=== PATIENT | male | born 1990 | race African-American/Black ===

== ENCOUNTER 2018-03-17 20:15 | Emergency (ER) | payer OTHER, SELFPAY ==
[2018-03-17 20:19] VITALS: BP 122/59; PULSE 66; RESP 18; O2SAT 99; BMI 25.8
[2018-03-17 20:55] VITALS: BP 122/59; PULSE 66; RESP 18; O2SAT 99; BMI 25.8
--- NOTE | 2018-03-17 20:57 | DI.CT.S_ITS ---
PROCEDURE: CT HEAD/BRAIN WO CON INDICATIONS: vision changes, headache, hx hemangioma TECHNIQUE: Noncontrast 4.5 mm thick angled axial sections acquired from the foramen magnum to the vertex, with coronal and sagittal reformats. For radiation dose reduction, the following was used: automated exposure control, adjustment of mA and/or kV according to patient size. COMPARISON: None. FINDINGS: Image quality: Excellent. CSF spaces: Basal cisterns are patent. No extra-axial fluid collections. Ventricles are normal in size and shape. Brain: No intracranial hemorrhage, mass, or mass effect. There are postsurgical changes along the right frontal and temporal lobes. Kenney-white matter interface is otherwise preserved. Skull and face: Calvarium and visualized facial bones demonstrate no acute fractures. There are postsurgical changes status post right temporoparietal craniotomy. Sinuses: Visualized sinuses and mastoids are clear. IMPRESSION: 1. No acute intracranial abnormality Dictated by: Mario Blue M.D. on 03/17/2018 at 21:49 Approved by: Mario Blue M.D. on 03/17/2018 at 21:56
[2018-03-17 21:00] VITALS: BP 129/70; PULSE 62; RESP 12; O2SAT 100
[2018-03-17 21:38] LABS: Bacteria Urine None Seen; Bilirubin Urine UA NEGATIVE (NEGATIVE); Color Urine UA YELLOW; Glucose Urine UA NEGATIVE (Normal); Ketones Urine UA NEGATIVE (NEGATIVE); Leukocyte Esterase Urine UA NEGATIVE (NEGATIVE); Nitrite Urine UA NEGATIVE (Negative); Occult Blood Urine UA NEGATIVE (Negative); Protein Urine UA TRACE (Negative); RBC Urine None Seen (0-5/HPF); Specific Gravity Urine UA 1.015 (1.000-1.035); Urobilinogen Urine UA 0.2 E.U./dL (0.2); WBC Urine None Seen (0-5/HPF); pH Urine UA 8.5 (4.5-8.0)
[2018-03-17 21:40] LABS: Add Manual Diff / Slide Review NO; Basophils Percent Auto 0.6 % (0-2); Eosinophils Percent Auto 1.5 % (2-4); Hemoglobin 14.9 g/dL (13.5-17.5); Lymphocytes Percent Auto 32.8 % (25-40); Mean Corpuscular HGB Conc 33.8 % (30-36); Mean Corpuscular Volume 85.8 fL (80-100); Monocytes Percent Auto 10.8 % (3-14); Neutrophils Absolute Auto 3100 /uL (3000-5900); Neutrophils Percent Auto 54.3 % (50-75); Platelet Count 231 X10^3/uL (150-400); Red Blood Cell Count 5.13 X10^6/uL (4.5-5.9); Red Cell Distribution Width 12.8 % (11.6-14.8); White Blood Cell Count 5.7 X10^3/uL (4.5-11.0)
--- NOTE | 2018-03-17 21:40 | ED.HA ---
HPI - Headache <MAGALYS Mercedes - Last Filed: 03/17/18 22:59> General Chief Complaint: Headache Stated Complaint: HARD TIME FOCUSING VISION CHANGES Time Seen by Provider: 03/17/18 20:37 Source: patient and family Mode of arrival: ambulatory Limitations: no limitations History of Present Illness HPI Narrative: Patient presents with chief complaint of headache. He states he has a history of headaches. He states that he had a short episode of vision loss and weakess this afternoon that lasted for about a second. 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 He also notes elucidation is a few months ago as well as the possibility of hallucinating spider this morning. He denies any cough, congestion, chest pain, shortness of breath, nausea vomiting or diarrhea. He states he is photophobic and phonophobic. He has not taken anything at home for his headache. He states he is having trouble finding a neurologist. Related Data Allergies Allergy/AdvReac Type Severity Reaction Status Date / Time No Known Drug Allergies Allergy Verified 03/17/18 20:18 Review of Systems <MAGALYS Mercedes - Last Filed: 03/17/18 22:59> Review of Systems GENERAL: Denies chills, fatigue, malaise, fever, sweats. HEENT: Denies sinus pain, ear pain, sore throat, difficulty swallowing, dizziness. RESPIRATORY: Denies dyspnea, cough, wheezing, hemoptysis, sputum. CARDIOVASCULAR: Denies chest pain, palpitations, orthopnea, edema, GASTROINTESTINAL: Denies nausea, vomiting, abdominal pain, diarrhea, constipation, melena. : Denies dysuria, frequency, incontinence, hematuria, urinary retention. MUSCULOSKELETAL: denies weakness, joint pain, or bony pain SKIN: Denies rash, skin lesions, or other NEUROLOGIC: HPI PSYCHIATRIC: No concerning psychosocial issues. 12 point review of systems is negative except for those stated above Exam <MAGALYS Mercedes - Last Filed: 03/17/18 22:59> Narrative Exam Narrative: GENERAL: This is a well-nourished, well-developed patient, in No acute distress HEAD: Atraumatic. Normocephalic. No temporal or scalp tenderness. EYES: Pupils equal round and reactive. Extraocular motions intact. No scleral icterus. No injection or drainage. no nystagmus noted ENT: Nose without bleeding, purulent drainage or septal hematoma. Throat without erythema, tonsillar hypertrophy or exudate. Uvula midline. Airway patent. NECK: Trachea midline. No JVD or lymphadenopathy. Supple, nontender, no meningeal signs. CARDIOVASCULAR: Regular rate and rhythm without murmurs, gallops, or rubs. RESPIRATORY: Clear to auscultation. Breath sounds equal bilaterally. No wheezes, rales, or rhonchi. GASTROINTESTINAL: Abdomen soft, non-tender, nondistended. No hepato-splenomegaly, or palpable masses. No guarding. EXTREMITIES: No clubbing, cyanosis, or edema. No joint tenderness, effusion, or edema noted. BACK: Nontender without deformity or crepitance. No flank tenderness. NEURO: AOx3. the strength is equal upper and lower extremities bilaterally. Achilles and radial reflexes intact bilaterally. Stable gait. Finger-nose test intact. SKIN: No rash or erythema. Scar visible right head. Initial Vital Signs Initial Vital Signs: Vital Signs Pulse Rate 66 03/17/18 20:19 Respiratory Rate 18 03/17/18 20:19 Blood Pressure 122/59 L 03/17/18 20:19 Pulse Oximetry 99 03/17/18 20:19 <Tammy Bowman DO - Last Filed: 03/18/18 04:18> Initial Vital Signs Initial Vital Signs: Vital Signs Pulse Rate 66 03/17/18 20:19 Respiratory Rate 18 03/17/18 20:19 Blood Pressure 122/59 L 03/17/18 20:19 Pulse Oximetry 99 03/17/18 20:19 Course <TERRY Mercedes - Last Filed: 03/17/18 22:59> Course Narrative: I checked on the patient several times throughout his stay in the emergency department. We discussed his negative head CT As well as follow up with primary care neurologist. Orders Ordered: ED Orders 03/17/18 20:57 CT head/brain wo con Stat 03/17/18 21:23 Urinalysis and Microscopic Stat Urine Drug Screen, Rapid Stat 03/17/18 21:28 Complete Blood Count AUTO DIFF Stat Comprehensive Metabolic Panel Stat Ethanol (ETOH) Stat Discontinued Medications Diphenhydramine HCl (Benadryl) 50 mg IM NOW ONE Stop: 03/17/18 22:10 Last Admin: 03/17/18 22:53 Dose: Diphenhydramine HCl (Benadryl) 50 mg IV NOW ONE Stop: 03/17/18 22:49 Last Admin: 03/17/18 22:52 Dose: 50 mg Sodium Chloride (Normal Saline 0.9%) 1,000 mls @ 1,000 mls/hr IV BOLUS ONE Stop: 03/17/18 23:53 Last Infusion: 03/17/18 23:18 Dose: 1,000 mls/hr Admin: 03/17/18 22:30 Dose: 1,000 mls/hr Ketorolac Tromethamine (Toradol) 30 mg IM NOW ONE Stop: 03/17/18 22:10 Last Admin: 03/17/18 22:53 Dose: Ketorolac Tromethamine (Toradol) 30 mg IV NOW ONE Stop: 03/17/18 22:49 Last Admin: 03/17/18 22:51 Dose: 30 mg Metoclopramide HCl (Reglan) 10 mg IM NOW ONE Stop: 03/17/18 22:10 Last Admin: 03/17/18 22:53 Dose: Metoclopramide HCl (Reglan) 10 mg IV NOW ONE Stop: 03/17/18 22:49 Last Admin: 03/17/18 22:52 Dose: 10 mg Vital Signs - 8 hr 03/17/18 20:19 03/17/18 20:55 03/17/18 21:00 Pulse Rate 66 66 62 Respiratory Rate 18 18 12 Blood Pressure 122/59 L 122/59 L Blood Pressure [Left Arm] 129/70 Pulse Oximetry 99 99 100 03/17/18 22:00 Pulse Rate 59 L Respiratory Rate 15 Blood Pressure Blood Pressure [Left Arm] 124/60 Pulse Oximetry 100 <Tammy Bowman DO - Last Filed: 03/18/18 04:18> Orders Ordered: ED Orders 03/17/18 20:57 CT head/brain wo con Stat 03/17/18 21:23 Urinalysis and Microscopic Stat Urine Drug Screen, Rapid Stat 03/17/18 21:28 Complete Blood Count AUTO DIFF Stat Comprehensive Metabolic Panel Stat Ethanol (ETOH) Stat Discontinued Medications Diphenhydramine HCl (Benadryl) 50 mg IM NOW ONE Stop: 03/17/18 22:10 Last Admin: 03/17/18 22:53 Dose: Diphenhydramine HCl (Benadryl) 50 mg IV NOW ONE Stop: 03/17/18 22:49 Last Admin: 03/17/18 22:52 Dose: 50 mg Sodium Chloride (Normal Saline 0.9%) 1,000 mls @ 1,000 mls/hr IV BOLUS ONE Stop: 03/17/18 23:53 Last Infusion: 03/17/18 23:18 Dose: 1,000 mls/hr Admin: 03/17/18 22:30 Dose: 1,000 mls/hr Ketorolac Tromethamine (Toradol) 30 mg IM NOW ONE Stop: 03/17/18 22:10 Last Admin: 03/17/18 22:53 Dose: Ketorolac Tromethamine (Toradol) 30 mg IV NOW ONE Stop: 03/17/18 22:49 Last Admin: 03/17/18 22:51 Dose: 30 mg Metoclopramide HCl (Reglan) 10 mg IM NOW ONE Stop: 03/17/18 22:10 Last Admin: 03/17/18 22:53 Dose: Metoclopramide HCl (Reglan) 10 mg IV NOW ONE Stop: 03/17/18 22:49 Last Admin: 03/17/18 22:52 Dose: 10 mg Vital Signs - 8 hr 03/17/18 20:19 03/17/18 20:55 03/17/18 21:00 Pulse Rate 66 66 62 Respiratory Rate 18 18 12 Blood Pressure 122/59 L 122/59 L Blood Pressure [Left Arm] 129/70 Pulse Oximetry 99 99 100 03/17/18 22:00 Pulse Rate 59 L Respiratory Rate 15 Blood Pressure Blood Pressure [Left Arm] 124/60 Pulse Oximetry 100 MDM - Headache <JEMIMA Mercedes-BC - Last Filed: 03/17/18 22:59> Lab Data Result diagrams: 03/17/18 21:28 03/17/18 21:28 Lab Results 03/17/18 03/17/18 03/17/18 Range/Units 21:23 21:23 21:28 WBC 5.7 (4.5-11.0) X10^3/uL RBC 5.13 (4.5-5.9) X10^6/uL Hgb 14.9 (13.5-17.5) g/dL Hct 44.0 (41-53) % MCV 85.8 (80-100) fL MCH 29.0 (26-34) PG MCHC 33.8 (30-36) % RDW 12.8 (11.6-14.8) % Plt Count 231 (150-400) X10^3/uL Neut % (Auto) 54.3 (50-75) % Lymph % (Auto) 32.8 (25-40) % Ceiba % (Auto) 10.8 (3-14) % Eos % (Auto) 1.5 L (2-4) % Baso % (Auto) 0.6 (0-2) % Neut # (Auto) 3100 (0260-0881) /uL Sodium (137-145) mmol/L Potassium (3.4-5.1) mmol/L Chloride (98-107) mmol/L Carbon Dioxide (22-32) mmol/L BUN (9-20) mg/dL Creatinine (0.66-1.25) mg/dL Estimated GFR (>60) mL/min BUN/Creatinine Ratio (6-22) Glucose (70-100) mg/dL Calcium (8.4-10.2) mg/dL Total Bilirubin (0.2-1.3) mg/dL AST (17-59) IU/L ALT (21-72) IU/L Alkaline Phosphatase (38-126) U/L Total Protein (6.3-8.2) g/dL Albumin (3.5-5.0) g/dL Globulin (1.7-4.1) g/dL Albumin/Globulin Ratio (1.0-2.8) Urine Color Yellow Urine Appearance Sl cloudy Urine pH 8.5 H (4.5-8.0) Ur Specific [place] 1.015 (1.000-1.035) Urine Protein Trace H (Negative) Urine Glucose (UA) Negative (Normal) g/dL Urine Ketones Negative (NEGATIVE) Urine Occult Blood Negative (Negative) Urine Nitrate Negative (Negative) Urine Bilirubin Negative (NEGATIVE) Urine Urobilinogen 0.2 (0.2) E.U./dL Ur Leukocyte Esterase Negative (NEGATIVE) Urine RBC None seen (0-5/HPF) Urine WBC None seen (0-5/HPF) Urine Bacteria None seen (None) Ur Culture Indicated? Cult not indicated Micro UA Comment * Urine Opiates Screen Negative (Negative) Ur Oxycodone Screen Negative (Negative) Urine Methadone Screen Negative (Negative) Ur Barbiturates Screen Negative (Negative) U Tricyclic Antidepress Negative (Negative) Ur Phencyclidine Scrn Negative (Negative) Ur Amphetamines Screen Negative (Negative) U Methamphetamines Scrn Negative (Negative) Ur MDMA Scrn (Ecstasy) Negative (Negative) U Benzodiazepines Scrn Negative (Negative) Urine Cocaine Screen Negative (Negative) U Marijuana (THC) Screen Negative (Negative) Ethyl Alcohol mg/dL 03/17/18 Range/Units 21:28 WBC (4.5-11.0) X10^3/uL RBC (4.5-5.9) X10^6/uL Hgb (13.5-17.5) g/dL Hct (41-53) % MCV (80-100) fL MCH (26-34) PG MCHC (30-36) % RDW (11.6-14.8) % Plt Count (150-400) X10^3/uL Neut % (Auto) (50-75) % Lymph % (Auto) (25-40) % [place] % (Auto) (3-14) % Eos % (Auto) (2-4) % Baso % (Auto) (0-2) % Neut # (Auto) (0438-2381) /uL Sodium 143 (137-145) mmol/L Potassium 3.9 (3.4-5.1) mmol/L Chloride 102 (98-107) mmol/L Carbon Dioxide 31 (22-32) mmol/L BUN 15 (9-20) mg/dL Creatinine 1.20 (0.66-1.25) mg/dL Estimated GFR > 60.0 (>60) mL/min BUN/Creatinine Ratio 12.5 (6-22) Glucose 93 (70-100) mg/dL Calcium 9.3 (8.4-10.2) mg/dL Total Bilirubin 0.6 (0.2-1.3) mg/dL AST 27 (17-59) IU/L ALT 33 (21-72) IU/L Alkaline Phosphatase 43 (38-126) U/L Total Protein 7.2 (6.3-8.2) g/dL Albumin 4.7 (3.5-5.0) g/dL Globulin 2.5 (1.7-4.1) g/dL Albumin/Globulin Ratio 1.9 (1.0-2.8) Urine Color Urine Appearance Urine pH (4.5-8.0) Ur Specific [place] (1.000-1.035) Urine Protein (Negative) Urine Glucose (UA) (Normal) g/dL Urine Ketones (NEGATIVE) Urine Occult Blood (Negative) Urine Nitrate (Negative) Urine Bilirubin (NEGATIVE) Urine Urobilinogen (0.2) E.U./dL Ur Leukocyte Esterase (NEGATIVE) Urine RBC (0-5/HPF) Urine WBC (0-5/HPF) Urine Bacteria (None) Ur Culture Indicated? Micro UA Comment Urine Opiates Screen (Negative) Ur Oxycodone Screen (Negative) Urine Methadone Screen (Negative) Ur Barbiturates Screen (Negative) U Tricyclic Antidepress (Negative) Ur Phencyclidine Scrn (Negative) Ur Amphetamines Screen (Negative) U Methamphetamines Scrn (Negative) Ur MDMA Scrn (Ecstasy) (Negative) U Benzodiazepines Scrn (Negative) Urine Cocaine Screen (Negative) U Marijuana (THC) Screen (Negative) Ethyl Alcohol < 10 mg/dL Imaging Data CT scan - head: Radiologist's impression: Chart Viewer Diagnostics DATE TYPE STATUS AUTHOR Hx 03/17/18 20:57 Mario Blue Peewee Briscoe 27, M107/19/1989 [facility] ER, ED - Main ED: R04 175.26cm 79.379kg BSA: 1.95m? BMI: 25.8kg/m? Headache Search Chart No Data to Display No Known Drug Allergies No Data to Display Today 22:00 [place] [address] CT Scan Report Signed Patient: PEEWEE BRISCOEMR#: [id number] : 1990Acct:[id number] Age/Sex: 27 / MDate of Service: 03/17/18 Loc: ED Accession Number: [id number] Procedure: CT head/brain wo con Ordering Provider: Vita Garcia PROCEDURE: CT HEAD/BRAIN WO CON INDICATIONS: vision changes, headache, hx hemangioma TECHNIQUE: Noncontrast 4.5 mm thick angled axial sections acquired from the foramen magnum to the vertex, with coronal and sagittal reformats. For radiation dose reduction, the following was used: automated exposure control, adjustment of mA and/or kV according to patient size. COMPARISON: None. FINDINGS: Image quality: Excellent. CSF spaces: Basal cisterns are patent. No extra-axial fluid collections. Ventricles are normal in size and shape. Brain: No intracranial hemorrhage, mass, or mass effect. There are postsurgical changes along the right frontal and temporal lobes. Kenney-white matter interface is otherwise preserved. Skull and face: Calvarium and visualized facial bones demonstrate no acute fractures. There are postsurgical changes status post right temporoparietal craniotomy. Sinuses: Visualized sinuses and mastoids are clear. IMPRESSION: 1. No acute intracranial abnormality Dictated by: Mario Blue M.D. on 03/17/2018 at 21:49 Approved by: Mario Blue M.D. on 03/17/2018 at 21:56 MDM Narrative Medical decision making narrative: Patient presents with chief complaint of headache as well as concern for recurrence of an intracranial abnormality. He had a negative head CT and negative lab work as well as a negative drug screen. He was treated with headache cocktail after he received a negative head CT. Patient states he is feeling better than he has in days and denies headache after his headache cocktail.Discussed at length follow up with primary care as well as follow-up with neurologist. Discussed return precautions. Patient no questions or concerns upon discharge. <Tammy Bowman, DO - Last Filed: 03/18/18 04:18> Lab Data Lab Results 03/17/18 03/17/18 03/17/18 Range/Units 21:23 21:23 21:28 WBC 5.7 (4.5-11.0) X10^3/uL RBC 5.13 (4.5-5.9) X10^6/uL Hgb 14.9 (13.5-17.5) g/dL Hct 44.0 (41-53) % MCV 85.8 (80-100) fL MCH 29.0 (26-34) PG MCHC 33.8 (30-36) % RDW 12.8 (11.6-14.8) % Plt Count 231 (150-400) X10^3/uL Neut % (Auto) 54.3 (50-75) % Lymph % (Auto) 32.8 (25-40) % [place] % (Auto) 10.8 (3-14) % Eos % (Auto) 1.5 L (2-4) % Baso % (Auto) 0.6 (0-2) % Neut # (Auto) 3100 (6928-5148) /uL Sodium (137-145) mmol/L Potassium (3.4-5.1) mmol/L Chloride (98-107) mmol/L Carbon Dioxide (22-32) mmol/L BUN (9-20) mg/dL Creatinine (0.66-1.25) mg/dL Estimated GFR (>60) mL/min BUN/Creatinine Ratio (6-22) Glucose (70-100) mg/dL Calcium (8.4-10.2) mg/dL Total Bilirubin (0.2-1.3) mg/dL AST (17-59) IU/L ALT (21-72) IU/L Alkaline Phosphatase (38-126) U/L Total Protein (6.3-8.2) g/dL Albumin (3.5-5.0) g/dL Globulin (1.7-4.1) g/dL Albumin/Globulin Ratio (1.0-2.8) Urine Color Yellow Urine Appearance Sl cloudy Urine pH 8.5 H (4.5-8.0) Ur Specific [place] 1.015 (1.000-1.035) Urine Protein Trace H (Negative) Urine Glucose (UA) Negative (Normal) g/dL Urine Ketones Negative (NEGATIVE) Urine Occult Blood Negative (Negative) Urine Nitrate Negative (Negative) Urine Bilirubin Negative (NEGATIVE) Urine Urobilinogen 0.2 (0.2) E.U./dL Ur Leukocyte Esterase Negative (NEGATIVE) Urine RBC None seen (0-5/HPF) Urine WBC None seen (0-5/HPF) Urine Bacteria None seen (None) Ur Culture Indicated? Cult not indicated Micro UA Comment * Urine Opiates Screen Negative (Negative) Ur Oxycodone Screen Negative (Negative) Urine Methadone Screen Negative (Negative) Ur Barbiturates Screen Negative (Negative) U Tricyclic Antidepress Negative (Negative) Ur Phencyclidine Scrn Negative (Negative) Ur Amphetamines Screen Negative (Negative) U Methamphetamines Scrn Negative (Negative) Ur MDMA Scrn (Ecstasy) Negative (Negative) U Benzodiazepines Scrn Negative (Negative) Urine Cocaine Screen Negative (Negative) U Marijuana (THC) Screen Negative (Negative) Ethyl Alcohol mg/dL 03/17/18 Range/Units 21:28 WBC (4.5-11.0) X10^3/uL RBC (4.5-5.9) X10^6/uL Hgb (13.5-17.5) g/dL Hct (41-53) % MCV (80-100) fL MCH (26-34) PG MCHC (30-36) % RDW (11.6-14.8) % Plt Count (150-400) X10^3/uL Neut % (Auto) (50-75) % Lymph % (Auto) (25-40) % [place] % (Auto) (3-14) % Eos % (Auto) (2-4) % Baso % (Auto) (0-2) % Neut # (Auto) (5992-4149) /uL Sodium 143 (137-145) mmol/L Potassium 3.9 (3.4-5.1) mmol/L Chloride 102 (98-107) mmol/L Carbon Dioxide 31 (22-32) mmol/L BUN 15 (9-20) mg/dL Creatinine 1.20 (0.66-1.25) mg/dL Estimated GFR > 60.0 (>60) mL/min BUN/Creatinine Ratio 12.5 (6-22) Glucose 93 (70-100) mg/dL Calcium 9.3 (8.4-10.2) mg/dL Total Bilirubin 0.6 (0.2-1.3) mg/dL AST 27 (17-59) IU/L ALT 33 (21-72) IU/L Alkaline Phosphatase 43 (38-126) U/L Total Protein 7.2 (6.3-8.2) g/dL Albumin 4.7 (3.5-5.0) g/dL Globulin 2.5 (1.7-4.1) g/dL Albumin/Globulin Ratio 1.9 (1.0-2.8) Urine Color Urine Appearance Urine pH (4.5-8.0) Ur Specific [place] (1.000-1.035) Urine Protein (Negative) Urine Glucose (UA) (Normal) g/dL Urine Ketones (NEGATIVE) Urine Occult Blood (Negative) Urine Nitrate (Negative) Urine Bilirubin (NEGATIVE) Urine Urobilinogen (0.2) E.U./dL Ur Leukocyte Esterase (NEGATIVE) Urine RBC (0-5/HPF) Urine WBC (0-5/HPF) Urine Bacteria (None) Ur Culture Indicated? Micro UA Comment Urine Opiates Screen (Negative) Ur Oxycodone Screen (Negative) Urine Methadone Screen (Negative) Ur Barbiturates Screen (Negative) U Tricyclic Antidepress (Negative) Ur Phencyclidine Scrn (Negative) Ur Amphetamines Screen (Negative) U Methamphetamines Scrn (Negative) Ur MDMA Scrn (Ecstasy) (Negative) U Benzodiazepines Scrn (Negative) Urine Cocaine Screen (Negative) U Marijuana (THC) Screen (Negative) Ethyl Alcohol < 10 mg/dL Discharge Plan Departure Patient Disposition: Home Clinical Impression: Headache Discharge Date/Time: 03/17/18 23:00 Interventions: ED Discharge Assessment Last Done: 03/17/18 23:00 Instructions: DI for Migraine, DI for Headache Activity Restrictions/Additional Instructions: Please follow-up with primary care provider regarding her neurological concerns and headache. Please do not take ibuprofen for 6-8 hr after the Toradol injection. Please go home and get some rest. Please come back to the emergency department for any acute concerns especially regarding your neurological status. Given your history I would like you to follow up your neurologist as we discussed. If given you contact information for several local neurologist. Please follow-up With your primary care provider in the next few days. Referrals: [facility] [Provider Group] [facility] [Outside] [facility] [Outside] [facility] [Outside] [facility] [Outside] [facility] [Outside] [facility] [Outside] <Tammy Bowman, DO - Last Filed: 03/18/18 04:18> Cosign ED Attending Cosignature Attestation: I was immediately available in the department for consultation. Documentation has been reviewed. I agree with assessment and plan.
[2018-03-17 21:41] LABS: Appearance Urine UA SL CLOUDY
[2018-03-17 21:43] LABS: Urine Amphetamines Negative (Negative); Urine Barbiturates Negative (Negative); Urine Benzodiazepines Negative (Negative); Urine Cocaine Negative (Negative); Urine MDMA Negative (Negative); Urine Methadone Negative (Negative); Urine Methamphetamines Negative (Negative); Urine Morphine/Opi cutoff 2000 Negative (Negative); Urine Oxycodone Negative (Negative); Urine Phencyclidine Negative (Negative); Urine Tetrahydrocannabinol Negative (Negative); Urine Tricyclic Antidepressant Negative (Negative)
[2018-03-17 21:47] LABS: Alanine Aminotransferase 33 IU/L (21-72); Albumin 4.7 g/dL (3.5-5.0); Albumin Globulin Ratio 1.9 (1.0-2.8); Alkaline Phosphatase 43 U/L (38-126); Aspartate Aminotransferase 27 IU/L (17-59); BUN Creatinine Ratio 12.5 (6-22); Bilirubin Total 0.6 mg/dL (0.2-1.3); Blood Urea Nitrogen 15 mg/dL (9-20); Calcium 9.3 mg/dL (8.4-10.2); Carbon Dioxide 31 mmol/L (22-32); Chloride 102 mmol/L (98-107); Estimated Glomerular Filt Rate > 60.0 mL/min (>60); Ethanol (ETOH) < 10 mg/dL; Globulin 2.5 g/dL (1.7-4.1); Glucose 93 mg/dL (70-100); HEMOLYSIS < 15 (0-50); Potassium 3.9 mmol/L (3.4-5.1); Sodium 143 mmol/L (137-145); Total Protein 7.2 g/dL (6.3-8.2)
[2018-03-17 21:50] LABS: Culture Indicated Urine Cult Not Indicated
[2018-03-17 22:00] VITALS: BP 124/60; PULSE 59; RESP 15; O2SAT 100
[2018-03-17] MEDS: SODIUM CHLORIDE 0.9% 1,000 ML 1000 ML IV (22:30)
--- NOTE | 2018-03-17 22:40 | ED_ITS ---
HPI - Headache <MAGALYS Mercedes - Last Filed: 03/17/18 22:59> General Chief Complaint: Headache Stated Complaint: HARD TIME FOCUSING VISION CHANGES Time Seen by Provider: 03/17/18 20:37 Source: patient and family Mode of arrival: ambulatory Limitations: no limitations History of Present Illness HPI Narrative: Patient presents with chief complaint of headache. He states he has a history of headaches. He states that he had a short episode of vision loss and weakess this afternoon that lasted for about a second. 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 He also notes elucidation is a few months ago as well as the possibility of hallucinating spider this morning. He denies any cough, congestion, chest pain , shortness of breath, nausea vomiting or diarrhea. He states he is photophobic and phonophobic. He has not taken anything at home for his headache. He states he is having trouble finding a neurologist. Related Data Allergies Allergy/AdvReac Type Severity Reaction Status Date / Time No Known Drug Allergies Allergy Verified 03/17/18 20:18 Review of Systems <MAGALYS Mercedes - Last Filed: 03/17/18 22:59> Review of Systems GENERAL: Denies chills, fatigue, malaise, fever, sweats. HEENT: Denies sinus pain, ear pain, sore throat, difficulty swallowing, dizziness. RESPIRATORY: Denies dyspnea, cough, wheezing, hemoptysis, sputum. CARDIOVASCULAR: Denies chest pain, palpitations, orthopnea, edema, GASTROINTESTINAL: Denies nausea, vomiting, abdominal pain, diarrhea, constipation, melena. : Denies dysuria, frequency, incontinence, hematuria, urinary retention. MUSCULOSKELETAL: denies weakness, joint pain, or bony pain SKIN: Denies rash, skin lesions, or other NEUROLOGIC: HPI PSYCHIATRIC: No concerning psychosocial issues. 12 point review of systems is negative except for those stated above Exam <MAGALYS Mercedes - Last Filed: 03/17/18 22:59> Narrative Exam Narrative: GENERAL: This is a well-nourished, well-developed patient, in No acute distress HEAD: Atraumatic. Normocephalic. No temporal or scalp tenderness. EYES: Pupils equal round and reactive. Extraocular motions intact. No scleral icterus. No injection or drainage. no nystagmus noted ENT: Nose without bleeding, purulent drainage or septal hematoma. Throat without erythema, tonsillar hypertrophy or exudate. Uvula midline. Airway patent. NECK: Trachea midline. No JVD or lymphadenopathy. Supple, nontender, no meningeal signs. CARDIOVASCULAR: Regular rate and rhythm without murmurs, gallops, or rubs. RESPIRATORY: Clear to auscultation. Breath sounds equal bilaterally. No wheezes , rales, or rhonchi. GASTROINTESTINAL: Abdomen soft, non-tender, nondistended. No hepato-splenomegaly , or palpable masses. No guarding. EXTREMITIES: No clubbing, cyanosis, or edema. No joint tenderness, effusion, or edema noted. BACK: Nontender without deformity or crepitance. No flank tenderness. NEURO: AOx3. the strength is equal upper and lower extremities bilaterally. Achilles and radial reflexes intact bilaterally. Stable gait. Finger-nose test intact. SKIN: No rash or erythema. Scar visible right head. Initial Vital Signs Initial Vital Signs: Vital Signs Pulse Rate 66 03/17/18 20:19 Respiratory Rate 18 03/17/18 20:19 Blood Pressure 122/59 L 03/17/18 20:19 Pulse Oximetry 99 03/17/18 20:19 <Tammy Bowman DO - Last Filed: 03/18/18 04:18> Initial Vital Signs Initial Vital Signs: Vital Signs Pulse Rate 66 03/17/18 20:19 Respiratory Rate 18 03/17/18 20:19 Blood Pressure 122/59 L 03/17/18 20:19 Pulse Oximetry 99 03/17/18 20:19 Course <TERRY Mercedes - Last Filed: 03/17/18 22:59> Course Narrative: I checked on the patient several times throughout his stay in the emergency department. We discussed his negative head CT As well as follow up with primary care neurologist. Orders Ordered: ED Orders 03/17/18 20:57 CT head/brain wo con Stat 03/17/18 21:23 Urinalysis and Microscopic Stat Urine Drug Screen, Rapid Stat 03/17/18 21:28 Complete Blood Count AUTO DIFF Stat Comprehensive Metabolic Panel Stat Ethanol (ETOH) Stat Discontinued Medications Diphenhydramine HCl (Benadryl) 50 mg IM NOW ONE Stop: 03/17/18 22:10 Last Admin: 03/17/18 22:53 Dose: Diphenhydramine HCl (Benadryl) 50 mg IV NOW ONE Stop: 03/17/18 22:49 Last Admin: 03/17/18 22:52 Dose: 50 mg Sodium Chloride (Normal Saline 0.9%) 1,000 mls @ 1,000 mls/hr IV BOLUS ONE Stop: 03/17/18 23:53 Last Infusion: 03/17/18 23:18 Dose: 1,000 mls/hr Admin: 03/17/18 22:30 Dose: 1,000 mls/hr Ketorolac Tromethamine (Toradol) 30 mg IM NOW ONE Stop: 03/17/18 22:10 Last Admin: 03/17/18 22:53 Dose: Ketorolac Tromethamine (Toradol) 30 mg IV NOW ONE Stop: 03/17/18 22:49 Last Admin: 03/17/18 22:51 Dose: 30 mg Metoclopramide HCl (Reglan) 10 mg IM NOW ONE Stop: 03/17/18 22:10 Last Admin: 03/17/18 22:53 Dose: Metoclopramide HCl (Reglan) 10 mg IV NOW ONE Stop: 03/17/18 22:49 Last Admin: 03/17/18 22:52 Dose: 10 mg Vital Signs - 8 hr 03/17/18 20:19 03/17/18 20:55 03/17/18 21:00 Pulse Rate 66 66 62 Respiratory Rate 18 18 12 Blood Pressure 122/59 L 122/59 L Blood Pressure [Left Arm] 129/70 Pulse Oximetry 99 99 100 03/17/18 22:00 Pulse Rate 59 L Respiratory Rate 15 Blood Pressure Blood Pressure [Left Arm] 124/60 Pulse Oximetry 100 <Tammy Bowman DO - Last Filed: 03/18/18 04:18> Orders Ordered: ED Orders 03/17/18 20:57 CT head/brain wo con Stat 03/17/18 21:23 Urinalysis and Microscopic Stat Urine Drug Screen, Rapid Stat 03/17/18 21:28 Complete Blood Count AUTO DIFF Stat Comprehensive Metabolic Panel Stat Ethanol (ETOH) Stat Discontinued Medications Diphenhydramine HCl (Benadryl) 50 mg IM NOW ONE Stop: 03/17/18 22:10 Last Admin: 03/17/18 22:53 Dose: Diphenhydramine HCl (Benadryl) 50 mg IV NOW ONE Stop: 03/17/18 22:49 Last Admin: 03/17/18 22:52 Dose: 50 mg Sodium Chloride (Normal Saline 0.9%) 1,000 mls @ 1,000 mls/hr IV BOLUS ONE Stop: 03/17/18 23:53 Last Infusion: 03/17/18 23:18 Dose: 1,000 mls/hr Admin: 03/17/18 22:30 Dose: 1,000 mls/hr Ketorolac Tromethamine (Toradol) 30 mg IM NOW ONE Stop: 03/17/18 22:10 Last Admin: 03/17/18 22:53 Dose: Ketorolac Tromethamine (Toradol) 30 mg IV NOW ONE Stop: 03/17/18 22:49 Last Admin: 03/17/18 22:51 Dose: 30 mg Metoclopramide HCl (Reglan) 10 mg IM NOW ONE Stop: 03/17/18 22:10 Last Admin: 03/17/18 22:53 Dose: Metoclopramide HCl (Reglan) 10 mg IV NOW ONE Stop: 03/17/18 22:49 Last Admin: 03/17/18 22:52 Dose: 10 mg Vital Signs - 8 hr 03/17/18 20:19 03/17/18 20:55 03/17/18 21:00 Pulse Rate 66 66 62 Respiratory Rate 18 18 12 Blood Pressure 122/59 L 122/59 L Blood Pressure [Left Arm] 129/70 Pulse Oximetry 99 99 100 03/17/18 22:00 Pulse Rate 59 L Respiratory Rate 15 Blood Pressure Blood Pressure [Left Arm] 124/60 Pulse Oximetry 100 MDM - Headache <JEMIMA Mercedes-BC - Last Filed: 03/17/18 22:59> Lab Data Result diagrams: 03/17/18 21:28 03/17/18 21:28 Lab Results 03/17/18 03/17/18 03/17/18 Range/Units 21:23 21:23 21:28 WBC 5.7 (4.5-11.0) X10^3/uL RBC 5.13 (4.5-5.9) X10^6/uL Hgb 14.9 (13.5-17.5) g/dL Hct 44.0 (41-53) % MCV 85.8 (80-100) fL MCH 29.0 (26-34) PG MCHC 33.8 (30-36) % RDW 12.8 (11.6-14.8) % Plt Count 231 (150-400) X10^3/uL Neut % (Auto) 54.3 (50-75) % Lymph % (Auto) 32.8 (25-40) % [place] % (Auto) 10.8 (3-14) % Eos % (Auto) 1.5 L (2-4) % Baso % (Auto) 0.6 (0-2) % Neut # (Auto) 3100 (9360-2509) /uL Sodium (137-145) mmol/L Potassium (3.4-5.1) mmol/L Chloride (98-107) mmol/L Carbon Dioxide (22-32) mmol/L BUN (9-20) mg/dL Creatinine (0.66-1.25) mg/dL Estimated GFR (>60) mL/min BUN/Creatinine Ratio (6-22) Glucose (70-100) mg/dL Calcium (8.4-10.2) mg/dL Total Bilirubin (0.2-1.3) mg/dL AST (17-59) IU/L ALT (21-72) IU/L Alkaline Phosphatase (38-126) U/L Total Protein (6.3-8.2) g/dL Albumin (3.5-5.0) g/dL Globulin (1.7-4.1) g/dL Albumin/Globulin Ratio (1.0-2.8) Urine Color Yellow Urine Appearance Sl cloudy Urine pH 8.5 H (4.5-8.0) Ur Specific [place] 1.015 (1.000-1.035) Urine Protein Trace H (Negative) Urine Glucose (UA) Negative (Normal) g/dL Urine Ketones Negative (NEGATIVE) Urine Occult Blood Negative (Negative) Urine Nitrate Negative (Negative) Urine Bilirubin Negative (NEGATIVE) Urine Urobilinogen 0.2 (0.2) E.U./dL Ur Leukocyte Esterase Negative (NEGATIVE) Urine RBC None seen (0-5/HPF) Urine WBC None seen (0-5/HPF) Urine Bacteria None seen (None) Ur Culture Indicated? Cult not indicated Micro UA Comment * Urine Opiates Screen Negative (Negative) Ur Oxycodone Screen Negative (Negative) Urine Methadone Screen Negative (Negative) Ur Barbiturates Screen Negative (Negative) U Tricyclic Antidepress Negative (Negative) Ur Phencyclidine Scrn Negative (Negative) Ur Amphetamines Screen Negative (Negative) U Methamphetamines Scrn Negative (Negative) Ur MDMA Scrn (Ecstasy) Negative (Negative) U Benzodiazepines Scrn Negative (Negative) Urine Cocaine Screen Negative (Negative) U Marijuana (THC) Screen Negative (Negative) Ethyl Alcohol mg/dL 03/17/18 Range/Units 21:28 WBC (4.5-11.0) X10^3/uL RBC (4.5-5.9) X10^6/uL Hgb (13.5-17.5) g/dL Hct (41-53) % MCV (80-100) fL MCH (26-34) PG MCHC (30-36) % RDW (11.6-14.8) % Plt Count (150-400) X10^3/uL Neut % (Auto) (50-75) % Lymph % (Auto) (25-40) % [place] % (Auto) (3-14) % Eos % (Auto) (2-4) % Baso % (Auto) (0-2) % Neut # (Auto) (9456-6930) /uL Sodium 143 (137-145) mmol/L Potassium 3.9 (3.4-5.1) mmol/L Chloride 102 (98-107) mmol/L Carbon Dioxide 31 (22-32) mmol/L BUN 15 (9-20) mg/dL Creatinine 1.20 (0.66-1.25) mg/dL Estimated GFR > 60.0 (>60) mL/min BUN/Creatinine Ratio 12.5 (6-22) Glucose 93 (70-100) mg/dL Calcium 9.3 (8.4-10.2) mg/dL Total Bilirubin 0.6 (0.2-1.3) mg/dL AST 27 (17-59) IU/L ALT 33 (21-72) IU/L Alkaline Phosphatase 43 (38-126) U/L Total Protein 7.2 (6.3-8.2) g/dL Albumin 4.7 (3.5-5.0) g/dL Globulin 2.5 (1.7-4.1) g/dL Albumin/Globulin Ratio 1.9 (1.0-2.8) Urine Color Urine Appearance Urine pH (4.5-8.0) Ur Specific [place] (1.000-1.035) Urine Protein (Negative) Urine Glucose (UA) (Normal) g/dL Urine Ketones (NEGATIVE) Urine Occult Blood (Negative) Urine Nitrate (Negative) Urine Bilirubin (NEGATIVE) Urine Urobilinogen (0.2) E.U./dL Ur Leukocyte Esterase (NEGATIVE) Urine RBC (0-5/HPF) Urine WBC (0-5/HPF) Urine Bacteria (None) Ur Culture Indicated? Micro UA Comment Urine Opiates Screen (Negative) Ur Oxycodone Screen (Negative) Urine Methadone Screen (Negative) Ur Barbiturates Screen (Negative) U Tricyclic Antidepress (Negative) Ur Phencyclidine Scrn (Negative) Ur Amphetamines Screen (Negative) U Methamphetamines Scrn (Negative) Ur MDMA Scrn (Ecstasy) (Negative) U Benzodiazepines Scrn (Negative) Urine Cocaine Screen (Negative) U Marijuana (THC) Screen (Negative) Ethyl Alcohol < 10 mg/dL Imaging Data CT scan - head: Radiologist's impression: Chart Viewer Diagnostics DATE TYPE STATUS AUTHOR Hx 03/17/18 20:57 Mario Blue Peewee Briscoe 27, M107/19/1989 [facility] ER, ED - Main ED: R04 175.26cm 79.379kg BSA: 1.95m? BMI: 25.8kg/m? Headache Search Chart No Data to Display No Known Drug Allergies No Data to Display Today 22:00 [place] [address] CT Scan Report Signed Patient: PEEWEE BRISCOEMR#: [id number] : 1990Acct:[id number] Age/Sex: 27 / MDate of Service: 03/17/18 Loc: ED Accession Number: [id number] Procedure: CT head/brain wo con Ordering Provider: Vita Garcia PROCEDURE: CT HEAD/BRAIN WO CON INDICATIONS: vision changes, headache, hx hemangioma TECHNIQUE: Noncontrast 4.5 mm thick angled axial sections acquired from the foramen magnum to the vertex, with coronal and sagittal reformats. For radiation dose reduction, the following was used: automated exposure control, adjustment of mA and/or kV according to patient size. COMPARISON: None. FINDINGS: Image quality: Excellent. CSF spaces: Basal cisterns are patent. No extra-axial fluid collections. Ventricles are normal in size and shape. Brain: No intracranial hemorrhage, mass, or mass effect. There are postsurgical changes along the right frontal and temporal lobes. [place]-white matter interface is otherwise preserved. Skull and face: Calvarium and visualized facial bones demonstrate no acute fractures. There are postsurgical changes status post right temporoparietal craniotomy. Sinuses: Visualized sinuses and mastoids are clear. IMPRESSION: 1. No acute intracranial abnormality Dictated by: Mario Blue M.D. on 03/17/2018 at 21:49 Approved by: Mario Blue M.D. on 03/17/2018 at 21:56 MDM Narrative Medical decision making narrative: Patient presents with chief complaint of headache as well as concern for recurrence of an intracranial abnormality. He had a negative head CT and negative lab work as well as a negative drug screen. He was treated with headache cocktail after he received a negative head CT. Patient states he is feeling better than he has in days and denies headache after his headache cocktail.Discussed at length follow up with primary care as well as follow-up with neurologist. Discussed return precautions. Patient no questions or concerns upon discharge. <Tammy Bowman, DO - Last Filed: 03/18/18 04:18> Lab Data Lab Results 03/17/18 03/17/18 03/17/18 Range/Units 21:23 21:23 21:28 WBC 5.7 (4.5-11.0) X10^3/uL RBC 5.13 (4.5-5.9) X10^6/uL Hgb 14.9 (13.5-17.5) g/dL Hct 44.0 (41-53) % MCV 85.8 (80-100) fL MCH 29.0 (26-34) PG MCHC 33.8 (30-36) % RDW 12.8 (11.6-14.8) % Plt Count 231 (150-400) X10^3/uL Neut % (Auto) 54.3 (50-75) % Lymph % (Auto) 32.8 (25-40) % [place] % (Auto) 10.8 (3-14) % Eos % (Auto) 1.5 L (2-4) % Baso % (Auto) 0.6 (0-2) % Neut # (Auto) 3100 (7624-4664) /uL Sodium (137-145) mmol/L Potassium (3.4-5.1) mmol/L Chloride (98-107) mmol/L Carbon Dioxide (22-32) mmol/L BUN (9-20) mg/dL Creatinine (0.66-1.25) mg/dL Estimated GFR (>60) mL/min BUN/Creatinine Ratio (6-22) Glucose (70-100) mg/dL Calcium (8.4-10.2) mg/dL Total Bilirubin (0.2-1.3) mg/dL AST (17-59) IU/L ALT (21-72) IU/L Alkaline Phosphatase (38-126) U/L Total Protein (6.3-8.2) g/dL Albumin (3.5-5.0) g/dL Globulin (1.7-4.1) g/dL Albumin/Globulin Ratio (1.0-2.8) Urine Color Yellow Urine Appearance Sl cloudy Urine pH 8.5 H (4.5-8.0) Ur Specific [place] 1.015 (1.000-1.035) Urine Protein Trace H (Negative) Urine Glucose (UA) Negative (Normal) g/dL Urine Ketones Negative (NEGATIVE) Urine Occult Blood Negative (Negative) Urine Nitrate Negative (Negative) Urine Bilirubin Negative (NEGATIVE) Urine Urobilinogen 0.2 (0.2) E.U./dL Ur Leukocyte Esterase Negative (NEGATIVE) Urine RBC None seen (0-5/HPF) Urine WBC None seen (0-5/HPF) Urine Bacteria None seen (None) Ur Culture Indicated? Cult not indicated Micro UA Comment * Urine Opiates Screen Negative (Negative) Ur Oxycodone Screen Negative (Negative) Urine Methadone Screen Negative (Negative) Ur Barbiturates Screen Negative (Negative) U Tricyclic Antidepress Negative (Negative) Ur Phencyclidine Scrn Negative (Negative) Ur Amphetamines Screen Negative (Negative) U Methamphetamines Scrn Negative (Negative) Ur MDMA Scrn (Ecstasy) Negative (Negative) U Benzodiazepines Scrn Negative (Negative) Urine Cocaine Screen Negative (Negative) U Marijuana (THC) Screen Negative (Negative) Ethyl Alcohol mg/dL 03/17/18 Range/Units 21:28 WBC (4.5-11.0) X10^3/uL RBC (4.5-5.9) X10^6/uL Hgb (13.5-17.5) g/dL Hct (41-53) % MCV (80-100) fL MCH (26-34) PG MCHC (30-36) % RDW (11.6-14.8) % Plt Count (150-400) X10^3/uL Neut % (Auto) (50-75) % Lymph % (Auto) (25-40) % [place] % (Auto) (3-14) % Eos % (Auto) (2-4) % Baso % (Auto) (0-2) % Neut # (Auto) (5364-1072) /uL Sodium 143 (137-145) mmol/L Potassium 3.9 (3.4-5.1) mmol/L Chloride 102 (98-107) mmol/L Carbon Dioxide 31 (22-32) mmol/L BUN 15 (9-20) mg/dL Creatinine 1.20 (0.66-1.25) mg/dL Estimated GFR > 60.0 (>60) mL/min BUN/Creatinine Ratio 12.5 (6-22) Glucose 93 (70-100) mg/dL Calcium 9.3 (8.4-10.2) mg/dL Total Bilirubin 0.6 (0.2-1.3) mg/dL AST 27 (17-59) IU/L ALT 33 (21-72) IU/L Alkaline Phosphatase 43 (38-126) U/L Total Protein 7.2 (6.3-8.2) g/dL Albumin 4.7 (3.5-5.0) g/dL Globulin 2.5 (1.7-4.1) g/dL Albumin/Globulin Ratio 1.9 (1.0-2.8) Urine Color Urine Appearance Urine pH (4.5-8.0) Ur Specific [place] (1.000-1.035) Urine Protein (Negative) Urine Glucose (UA) (Normal) g/dL Urine Ketones (NEGATIVE) Urine Occult Blood (Negative) Urine Nitrate (Negative) Urine Bilirubin (NEGATIVE) Urine Urobilinogen (0.2) E.U./dL Ur Leukocyte Esterase (NEGATIVE) Urine RBC (0-5/HPF) Urine WBC (0-5/HPF) Urine Bacteria (None) Ur Culture Indicated? Micro UA Comment Urine Opiates Screen (Negative) Ur Oxycodone Screen (Negative) Urine Methadone Screen (Negative) Ur Barbiturates Screen (Negative) U Tricyclic Antidepress (Negative) Ur Phencyclidine Scrn (Negative) Ur Amphetamines Screen (Negative) U Methamphetamines Scrn (Negative) Ur MDMA Scrn (Ecstasy) (Negative) U Benzodiazepines Scrn (Negative) Urine Cocaine Screen (Negative) U Marijuana (THC) Screen (Negative) Ethyl Alcohol < 10 mg/dL Discharge Plan Departure Patient Disposition: Home Clinical Impression: Headache Discharge Date/Time: 03/17/18 23:00 Interventions: ED Discharge Assessment Last Done: 03/17/18 23:00 Instructions: DI for Migraine, DI for Headache Activity Restrictions/Additional Instructions: Please follow-up with primary care provider regarding her neurological concerns and headache. Please do not take ibuprofen for 6-8 hr after the Toradol injection. Please go home and get some rest. Please come back to the emergency department for any acute concerns especially regarding your neurological status. Given your history I would like you to follow up your neurologist as we discussed. If given you contact information for several local neurologist. Please follow-up With your primary care provider in the next few days. Referrals: [facility] [Provider Group] [facility] Neurological [Outside] [facility] [Outside] [facility] Neurology [Outside] [facility] Neurology [Outside] [facility] [place] [Outside] [facility] Neuropsychology [Outside] <Tammy Bowman, DO - Last Filed: 03/18/18 04:18> Cosign ED Attending Cosignature Attestation: I was immediately available in the department for consultation. Documentation has been reviewed. I agree with assessment and plan.
[2018-03-17] MEDS: KETOROLAC 60 MG/2 ML VIAL 30 MG IV (22:51)
[2018-03-17] MEDS: METOCLOPRAMIDE 10 MG/2 ML INJ IV (22:52)
[2018-03-17] MEDS: diphenhydrAMINE 50 MG/ML VIAL IV (22:52)
== END 2018-03-17 23:00 | disposition home or self-care (01) ==
PROVIDERS: Emergency Provider Nurse Practitioner Family
DX: R51 Headache (principal)
CPT/HCPCS: 36415; 70450; 80053; 80305; 80320; 81001; 85025; 96361; 96374; 96375; 99283; 99284; J1200; J1885; J2765

== ENCOUNTER 2018-03-23 16:02 | Emergency (ER) | payer OTHER, SELFPAY ==
[2018-03-23 16:10] VITALS: BP 138/67; PULSE 73; RESP 15; TEMP 36.8; O2SAT 95; BMI 26.2
--- NOTE | 2018-03-23 16:13 | ED_ITS ---
HPI - Headache General Chief Complaint: Headache Stated Complaint: MIGRAINE Time Seen by Provider: 03/23/18 16:12 Source: patient Mode of arrival: ambulatory Limitations: no limitations History of Present Illness HPI Narrative: patient is a 27-year-old male with a history of migraines. He states that he has daily migraines. He is not on any medication. He states that he occasionally takes Excedrin. He states that he has had Fioricet in the past which sometimes helped but has not had that in some time. Has a history of a right frontal lobe hemangioma with craniectomy for treatment of this. This was done approximately 5 years ago. Was seen here in the emergency department several days ago with a migraine headache. Had a head CT performed at that time that was unremarkable. After receiving Benadryl and Reglan here in the emergency department he stated that he felt much better. His headache was gone for 48 hr and then returned. He is here again for the same headache. Related Data Home Medications Medication Instructions Recorded Confirmed Work Out Supplements 1 ea PO PRN PRN 03/23/18 03/23/18 [id number] 1 tab PO PRN PRN 03/23/18 03/23/18 [Excedrin Migraine] Allergies Allergy/AdvReac Type Severity Reaction Status Date / Time No Known Drug Allergies Allergy Verified 03/23/18 16:10 Review of Systems Constitutional Reports headache(s), Denies lethargy and Denies malaise Eyes Reports other visual disturbances ENT Ears, Nose, Mouth, and Throat: Denies vertigo, Denies dizziness, Denies facial pain, Reports headache(s) and Denies neck mass Cardiovascular Denies chest pain, Denies syncope and Denies dyspnea Respiratory Denies dyspnea Gastrointestinal Gastrointestinal: Denies abdominal pain, Denies nausea and Denies vomiting Musculoskeletal Denies back pain, Denies myalgias, Denies arthralgias, Denies muscle weakness, Denies numbness and Denies tingling Integumentary/Breasts Denies pruritus and Denies rash Neurologic Denies vertigo, Denies dizziness, Denies syncope, Reports headache(s), Denies numbness and Denies tingling Hematologic/Lymphatic Denies easy bleeding and Denies easy bruising [facility] Medical History Hemangioma (Acute) Migraines (Acute) Surgical History Status post craniectomy (Acute) Social History Smoking Status: Current some day smoker Exam Initial Vital Signs Initial Vital Signs: Vital Signs Temperature 98.2 F 03/23/18 16:10 Pulse Rate 73 03/23/18 16:10 Respiratory Rate 15 03/23/18 16:10 Blood Pressure 138/67 03/23/18 16:10 Pulse Oximetry 95 03/23/18 16:10 Const General: cooperative, healthy appearing, comfortable, well developed, well groomed and No acute distress Orientation: alert, awake and oriented x3 HENMT Head: normal to inspection and normocephalic Eyes Pupils: PERRL EOM: EOM intact bilaterally Resp Effort & Inspection: normal respiratory effort Auscultation: clear to auscultation bilaterally Cardio Rate: regular rate Rhythm: regular rhythm Pulses: radial pulses present GI Inspection: non-distended Palpation: soft, No firm and No tender Skin Lesions: no lesions Rashes: no rashes Neuro General: alert, awake, oriented x3 and moves all extremities Cranial Nerves: CN's II-XI intact bilaterally Cognition: normal cognition Speech: speech normal Gait: normal gait Motor: muscle tone normal throughout Sensory Exam: no sensory deficits noted Extrem General: normal to inspection and capillary refill normal Psych Appearance: grossly normal and well kempt Course Orders Ordered: ED Orders 03/23/18 16:29 MR head/brain wo/w con Stat Sodium Chloride (Normal Saline 0.9%) 1,000 mls @ 1,000 mls/hr IV BOLUS ONE Stop: 03/23/18 17:59 Last Admin: 03/23/18 17:20 Dose: 1,000 mls/hr Discontinued Medications Dexamethasone (Decadron) 10 mg IV NOW ONE Stop: 03/23/18 17:01 Last Admin: 03/23/18 17:21 Dose: 10 mg Diphenhydramine HCl (Benadryl) 25 mg IV NOW ONE Stop: 03/23/18 17:01 Last Admin: 03/23/18 17:21 Dose: 25 mg Metoclopramide HCl (Reglan) 10 mg IV NOW ONE Stop: 03/23/18 17:01 Last Admin: 03/23/18 17:21 Dose: 10 mg Vital Signs - 8 hr 03/23/18 16:10 Temperature 98.2 F Pulse Rate 73 Respiratory Rate 15 Blood Pressure 138/67 Pulse Oximetry 95 MDM - Headache Medical Records Attestation: I reviewed the patient's medical records. Imaging Data MRI - head: Radiologist's impression: PROCEDURE: MR HEAD/BRAIN WO/W CON INDICATIONS: headaches s/p right frontal hemangioma TECHNIQUE: Noncontrast axial T1 spin echo, axial T2 fast spin echo, sagittal and axial FLAIR, coronal T2 fast spin echo, axial gradient echo, axial diffusion and ADC through the brain. After the administration of contrast, axial and coronal 3D VIBE or T1 spin echo with fat saturation through the brain. COMPARISON: [facility], CT, CT HEAD/BRAIN WO CON, 03/17/2018, 20:59. FINDINGS: Image quality: Excellent. CSF Spaces: Basal cisterns are patent. No extra-axial fluid collections. Ventricles are normal in size and shape. Brain: No midline shift. No intracranial bleeds or masses. No abnormal intracranial enhancement. The brainstem appears normal. Diffusion-weighted images demonstrate no acute ischemic insults. No chronic ischemic insults. Normal intravascular flow voids are present. Skull and face: Calvarial marrow is normal in signal. Right-sided post cardiotomy changes. Orbits appear normal. Sinuses: Sinuses and mastoids appear clear. IMPRESSION: No acute intracranial signal abnormality. Postsurgical changes related to right frontal craniotomy. There is linear enhancement in the presumed right frontal operative bed. This probably represents incidental vessel, although comparison with prior MRIs would be most helpful if obtainable. Dictated by: Saeed Cruz M.D. on 03/23/2018 at 17:26 Approved by: Saeed Cruz M.D. on 03/23/2018 at 17:32 [facility] Narrative Medical decision making narrative: patient's MRI shows no acute pathology. I did discuss his findings with him. Patient did not want a prescription for any new headache medications. He has been in contact with his primary doctor with regard to referral to see neurology and headache specialist. I did inform her this is important for him to do. Will hold on further workup for now. Patient was given return precautions. He expressed understanding and agreement with plan. Discharge Plan Departure Patient Disposition: Home Clinical Impression: Headache Instructions: Migraine Headaches (Alternative Therapy), Migraine -- Adult Activity Restrictions/Additional Instructions: it is important that you talk with Your primary care doctor with regard to referral to see Neurology. return to the emergency department for any new or worsening symptoms Prescriptions: No Action [id number] [Excedrin Migraine] 250-250-65 mg Tablet 1 tab PO PRN PRN (Reason: Migraine Headache) RF: 0 Work Out Supplements 1 ea PO PRN PRN (Reason: unknown) RF: 0
--- NOTE | 2018-03-23 16:29 | DI.MRI.S_ITS ---
PROCEDURE: MR HEAD/BRAIN WO/W CON INDICATIONS: headaches s/p right frontal hemangioma TECHNIQUE: Noncontrast axial T1 spin echo, axial T2 fast spin echo, sagittal and axial FLAIR, coronal T2 fast spin echo, axial gradient echo, axial diffusion and ADC through the brain. After the administration of contrast, axial and coronal 3D VIBE or T1 spin echo with fat saturation through the brain. COMPARISON: [facility], CT, CT HEAD/BRAIN WO CON, 03/17/2018, 20:59. FINDINGS: Image quality: Excellent. CSF Spaces: Basal cisterns are patent. No extra-axial fluid collections. Ventricles are normal in size and shape. Brain: No midline shift. No intracranial bleeds or masses. No abnormal intracranial enhancement. The brainstem appears normal. Diffusion-weighted images demonstrate no acute ischemic insults. No chronic ischemic insults. Normal intravascular flow voids are present. Skull and face: Calvarial marrow is normal in signal. Right-sided post cardiotomy changes. Orbits appear normal. Sinuses: Sinuses and mastoids appear clear. IMPRESSION: No acute intracranial signal abnormality. Postsurgical changes related to right frontal craniotomy. There is linear enhancement in the presumed right frontal operative bed. This probably represents incidental vessel, although comparison with prior MRIs would be most helpful if obtainable. Dictated by: Saeed Cruz M.D. on 03/23/2018 at 17:26 Approved by: Saeed Cruz M.D. on 03/23/2018 at 17:32
[2018-03-23] MEDS: SODIUM CHLORIDE 0.9% 1,000 ML 1000 ML IV (17:20)
[2018-03-23] MEDS: DEXAMETHASONE 10 MG/ML VIAL IV (17:21)
[2018-03-23] MEDS: diphenhydrAMINE 50 MG/ML VIAL 25 MG IV (17:21)
[2018-03-23] MEDS: METOCLOPRAMIDE 10 MG/2 ML INJ IV (17:21)
[2018-03-23 18:39] VITALS: BP 113/69; PULSE 57; RESP 20; O2SAT 100
== END 2018-03-23 18:42 | disposition home or self-care (01) ==
PROVIDERS: Emergency Provider Emergency Medicine
DX: R51 Headache (principal)
CPT/HCPCS: 70553; 96361; 96374; 96375; 99283; 99285; J1100; J1200; J2765

== ENCOUNTER 2022-12-06 17:54 | Emergency (ER) | payer OTHER, SELFPAY ==
[2022-12-06 17:56] VITALS: BP 142/76; PULSE 81; RESP 18; TEMP 37.1; O2SAT 98; BMI 27.1
--- NOTE | 2022-12-06 18:07 | DI.RAD.S_ITS ---
PROCEDURE: XR CHEST 1V INDICATIONS: chest pain TECHNIQUE: One view of the chest was acquired. COMPARISON: None. FINDINGS: Surgical changes and devices: None. Lungs and pleura: Lungs are clear. No pleural effusions or pneumothorax. Mediastinum: Mediastinal contours appear normal. Heart size is normal. Bones and chest wall: No suspicious bony lesions. Overlying soft tissues appear unremarkable. IMPRESSION: No acute cardiopulmonary abnormality. Approved by: Hema Tan M.D. on 12/06/2022 at 19:11
[2022-12-06 18:28] LABS: Add Manual Diff / Slide Review NO; Basophils Absolute Auto 0 /uL (0-100); Basophils Percent Auto 0.4 % (0-2); Eosinophils Absolute Auto 0 /uL (0-450); Eosinophils Percent Auto 0.2 % (2-4); Hematocrit 42.2 % (41-53); Hemoglobin 14.3 g/dL (13.5-17.5); Lymphocytes Absolute Auto 1700 /uL (1100-4500); Lymphocytes Percent Auto 18.1 % (25-40); Mean Corpuscular Hemoglobin 28.4 PG (26-34); Mean Corpuscular Volume 83.6 fL (80-100); Monocytes Absolute Auto 800 /uL (0-900); Monocytes Percent Auto 8.7 % (3-14); Neutrophils Absolute Auto 6900 /uL (1500-7000); Neutrophils Percent Auto 72.6 % (50-75); Platelet Count 251 X10^3/uL (150-400); Red Blood Cell Count 5.04 X10^6/uL (4.5-5.9); Red Cell Distribution Width 13.5 % (11.6-14.8); White Blood Cell Count 9.5 X10^3/uL (4.5-11.0)
[2022-12-06 18:35] LABS: Alanine Aminotransferase 26 IU/L (<50); Albumin 4.9 g/dL (3.5-5.0); Albumin Globulin Ratio 1.5 (1.0-2.8); Alkaline Phosphatase 39 U/L (38-126); Aspartate Aminotransferase 29 IU/L (17-59); BUN Creatinine Ratio 12.6 (6-22); Bilirubin Total 0.7 mg/dL (0.2-1.3); Blood Urea Nitrogen 14 mg/dL (9-20); Calcium 9.8 mg/dL (8.4-10.2); Carbon Dioxide 27 mmol/L (22-32); Chloride 102 mmol/L (98-107); Creatine Kinase 192 U/L (55-170); Estimated Glomerular Filt Rate > 60 mL/min (>60); Globulin 3.3 g/dL (1.7-4.1); Glucose 88 mg/dL (70-100); HEMOLYSIS < 15 (0-50); Lipase 51 U/L (23-300); Magnesium 2.1 mg/dL (1.6-2.3); Potassium 4.1 mmol/L (3.4-5.1); Sodium 138 mmol/L (137-145); Total Protein 8.2 g/dL (6.3-8.2)
[2022-12-06 18:46] LABS: Troponin I < 0.012 ng/mL (0.01-0.034)
[2022-12-06 19:03] LABS: PTT Partial Thromboplastin Tim 38 SECONDS (26-36)
[2022-12-06 19:06] LABS: INR 1.2 (0.9-1.3); Prothrombin Time 14.1 SECONDS (10.1-12.7)
[2022-12-06 20:48] VITALS: BP 129/79; PULSE 62; RESP 18; O2SAT 99
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
== END 2022-12-06 21:18 | disposition home or self-care (01) ==
PROVIDERS: Emergency Provider Emergency Medicine
DX: R07.89 Other chest pain (principal); R45.4 Irritability and anger
CPT/HCPCS: 36415; 71045; 80053; 82550; 83690; 83735; 84484; 85025; 85610; 85730; 93005; 93010; 99283